=== PATIENT | female | born 1935 | race Caucasian/White ===

== ENCOUNTER 2018-10-21 16:06 | Emergency (ER) | payer MEDICARE, OTHER ==
[~2018-10-21] VITALS: Ht 154.9 cm; Wt 79.7 kg
[2018-10-21 16:12] VITALS: Ht 154.9 cm; Wt 79.7 kg
--- NOTE | 2018-10-21 19:30 | ERD ---
ER Documentation Chief Complaint Chief Complaint L toes/foot pain x2 months denies DM and arthritis and injury HPI 83-year-old female, presents to the emergency department, brought him by son, complaining of left foot pain for 2 months. The pain is dull, constant, 8/10. No history of trauma. No medications taken at this time for pain. The patient denies fevers, no chills no leg edema, no chest pain, no shortness of breath. ROS All systems reviewed and are negative except as per history of present illness. Medications Home Meds Active Scripts Acetaminophen* (Tylenol*) 325 Mg Tablet, 2 TAB PO Q8 PRN for PAIN AND OR ELEVATED TEMP, #20 TAB Prov:KEIKO GUAJARDO MD 10/21/18 Cephalexin* (Keflex*) 500 Mg Capsule, 500 MG PO BID for 7 Days, CAP Prov:KEIKO GUAJARDO MD 10/21/18 Reported Medications [None] No Conflict Check 10/16/10 Allergies Allergies: Coded Allergies: No Known Allergy (Verified Allergy, Unknown, 12/22/08) PMhx/Soc History of Surgery: Yes (LEFT ANKLE, HYSTERECTOMY, BILATERAL ARMS, APPEND ECTOMY) Anesthesia Reaction: No Hx Neurological Disorder: No Hx Respiratory Disorders: Yes (ASTHMA) Hx Cardiac Disorders: No Hx Psychiatric Problems: No Hx Miscellaneous Medical Probl: No Hx Alcohol Use: No Hx Substance Use: No Hx Tobacco Use: No Smoking Status: Never smoker Physical Exam Vitals Vital Signs Date Temp Pulse Resp B/P (MAP) Pulse Ox O2 O2 Flow FiO2 Time Delivery Rate 10/21/18 97.3 92 20 161/68 93 16:12 (99) Physical Exam Const: No acute distress Head: Atraumatic Eyes: Normal Conjunctiva ENT: Normal External Ears, Nose and Mouth. Neck: Full range of motion. No meningismus. Resp: Clear to auscultation bilaterally Cardio: Regular rate and rhythm, no murmurs Abd: Soft, non tender, non distended. Normal bowel sounds Skin: No petechiae or rashes Back: No midline or flank tenderness Ext: No cyanosis, or edema Neur: Awake and alert Psych: Normal Mood and Affect Results 24 hrs Patient: ROHIT ROBBINS : 1935 Age: 83 Sex: F MR #: [id number] DOS: 10/21/181940 Ordering MD: KEIKO GUAJARDO MD Location: [facility] Room/Bed: PROCEDURE: DX Foot CLINICAL INDICATION: 83-year-old. Left heel pain. No trauma. TECHNIQUE: Three views. COMPARISON: None FINDINGS: Osseous structures: The bones are demineralized. No acute fracture. No lytic or blastic changes. Calcaneal osteophyte/s present. Joint space: Joint spaces maintained. Soft tissues: No soft tissue swelling. Previous ORIF distal fibula and medial malleolus with hardware in place. Vascular calcifications are identified. IMPRESSION: 1. Osteopenia/osteoporosis. 2. Vascular calcifications in the midfoot, not unexpected and 83-year-old. 3. No acute findings. RPTAT: HLRS Procedures/MDM At the time of discharge, patient is stable, nontoxic, vital signs in normal range. Differential diagnosis include but not limited to: sprain/strain, ligament injury, arthritis; low suspicion for fracture, dislocation, septic a rthritis. Neurovascular exam grossly intact. no clinical findings suggestive of acute infectious process, no deformity, no rashes. Pertinent Data: X-rays: No fracture or dislocation Physical examination and clinical presentation consistent most likely with osteoarthritis. Antibiotics not indicated at this time. The patient is requesting a prescription for antibiotics, a prescription will be given with instructions to continue symptomatic and conservative management for 3 days, trying to avoid the use of unnecessary antibiotics due to possible side effects and complications. if there is no improvement of the symptoms in 72 hours, okay to start antibiotics. Results and clinical impression discussed with patient and the son who agreed with management. The patient is stable to be treated outpatient and will be discharged home with recommendations for NSAIDs 3 times daily for 5 days and close monitoring. The patient was instructed to follow up with the primary care provider in the next 48h. If symptoms persist, worsen or new symptoms develop, then patient should return to the ED immediately. Instructions explained and given to patient with acknowledgment and demonstrated understanding. Disclaimer: Inadvertent spelling and grammatical errors are likely due to EHR/dictation software use and do not reflect on the overall quality of patient care. Also, please note that the electronic time recorded on this note does not necessarily reflect the actual time of the patient encounter. Departure Diagnosis: Primary Impression: Left foot pain Condition: Stable Additional Instructions: Muchas gabo por [facility] para woo servicio. Esperamos que en woo visita a la cody de emergencia woo problema medico haya sido solucionado y que se sienta mucho mejor. Para estar seguros que woo mejoria sigue en proceso, le pedimos el favor de hacer tigre froilan de seguimiento medico con woo doctor primario en los proximos 2-4 howard. Lleve con usted estos documentos y las medicinas recetadas. Si brittni sintomas empeoran, NO SE ESPERE, por favor regrese a cody de emergencia INMEDIATAMENTE. En devyn que usted no tenga un mdico de atencin primaria: Llame al mdico o clnica comunitaria de referencia que aparece abajo yolette las horas de consultorio para hacer tigre froilan para que le vean. CLINICAS: [facility] [phone] [facility] [phone] [facility] [facility] [phone] [facility] [phone] [facility]. [place] [id number] [phone] [facility]. [phone] KEIKO ANAND MD Oct 21, 2018 19:30
[2018-10-21] MEDS ORDERED: CEPH-443 PO (20:51)
[2018-10-21] MEDS ORDERED: ACET325T33 PO (20:51)
[2018-10-21 21:04] VITALS: BP 146/72; PULSE 60; RESP 19
== END 2018-10-21 21:05 | disposition home or self-care (01) ==
LOC: FTE 16:06
DX: M79.672 Pain in left foot (principal); J45.909 Unspecified asthma, uncomplicated